=== PATIENT | male | born 1955 | race Caucasian/White ===

== ENCOUNTER 2022-04-30 10:54 | Outpatient (CLI) | payer MEDICARE, BC, SELFPAY ==
[2022-04-30 10:59] LABS: Chloride* 107 mmol/L (96-114); Sodium* 140 mmol/L (135-149)
[2022-04-30 11:01] LABS: Carbon Dioxide* 22 mmol/L (20-32); Cholesterol* 129 mg/dL (90-199); Creatinine* 0.9 mg/dL (0.5-1.5); Estimated Glomerular Filt Rate 92 ml/min
[2022-04-30 11:02] LABS: Alanine Aminotransferase* 39 U/L (4-50); Alkaline Phosphatase* 94 U/L (40-150); Aspartate Amino Transferase* 31 U/L (12-35); Bilirubin Total* 0.7 mg/dL (0.1-1.5); Blood Urea Nitrogen* 16 mg/dL (7-30); Calcium* 8.7 mg/dL (8.4-10.6); Glucose* 115 mg/dL (60-115); HDL Cholesterol* 47 mg/dL (>=40); LDL Cholesterol Calculated 62 mg/dL (<100); Total Protein* 6.7 g/dL (6.0-8.3); Triglycerides* 100 mg/dL (40-149)
[2022-04-30 11:34] LABS: PSA Screen* 0.29 ng/mL (0.10-4.00)
== END 2022-04-30 10:55 | disposition home or self-care (01) ==
PROVIDERS: PCP Family Medicine; Visit Provider Family Medicine
DX: Z00.00 Encounter for general adult medical examination without abnormal findings (principal); I25.10 Atherosclerotic heart disease of native coronary artery without angina pectoris; I10 Essential (primary) hypertension; N52.9 Male erectile dysfunction, unspecified; Z12.5 Encounter for screening for malignant neoplasm of prostate; Z95.5 Presence of coronary angioplasty implant and graft
CPT/HCPCS: 80053; 80061; 84153

== ENCOUNTER 2023-05-20 07:50 | Outpatient (CLI) | payer MEDICARE, BC, SELFPAY | END 2023-05-20 07:51 | disposition home or self-care (01) | LOC: NFLDREF 05-25 10:38 | PROVIDERS: PCP Family Medicine; Referring Provider Family Medicine; Visit Provider Family Medicine | DX: Z00.00 Encounter for general adult medical examination without abnormal findings (principal); Z12.5 Encounter for screening for malignant neoplasm of prostate; I25.10 Atherosclerotic heart disease of native coronary artery without angina pectoris; I10 Essential (primary) hypertension; R73.03 Prediabetes | CPT/HCPCS: 80053; 80061; 84153 ==

== ENCOUNTER 2024-05-28 08:38 | Outpatient (CLI) | payer MEDICARE, BC, SELFPAY ==
--- OUTSIDE RECORDS SUMMARY | 2024-06-01 00:42 | XMS_ITS | Clinical Summary ---
Author Organization [facility] Address [place], [place] [address] Care Team Providers Care Chips Screen Tender Name Role Phone Leandro Wilson MD Primary Care Provider [phone] Allergies No known active allergies Medications Medication Sig Dispensed Refills Start Date End Date Status aspirin (ECOTRIN) 81 mg enteric coated tablet Take 81 mg by mouth once daily with a meal. Active atorvastatin (LIPITOR) 80 mg tablet Take 80 mg by mouth at bedtime. Active clopidogrel (PLAVIX) 75 mg tablet Take 75 mg by mouth once daily. Active lisinopril (PRINIVIL; ZESTRIL) 2.5 mg tablet Take 2.5 mg by mouth once daily. Active nitroglycerin (NITROSTAT) 0.[address] 0.4 mg under the tongue every 5 minutes if needed for Chest Pain. Active ibuprofen (ADVIL; MOTRIN) 200 mg tablet Take 200 mg by mouth 4 times daily if needed. Active fluticasone (50 mcg per actuation) nasal solution (FLONASE)Indications:A llergic rhinitis, unspecified seasonality, unspecified trigger Inhale 2 Sprays into affected nostril(s) once daily. 16 g 11 08/29/2023 Active Social History Tobacco Use Types Packs/Day Years Used Date Smoking Tobacco: Some Days Cigarettes Smokeless Tobacco: Never Tobacco Cessation:Ready to Q uit: Not Asked; Counseling Given: Not Answered Comments:Rare cigarettes Alcohol Use Standard Drinks/Week Comments Yes 0 (1 standard drink = 0.6 oz pur e alcohol) occ.- Social Connections Answer Date Recorded Frequency of Communication with Friends and Fami ly Not on file 08/29/2023 Sex and Gender Information Value Date Recorded Sex Assigned at Not on file Gender Identity Not on file Sexual Orientation Not on file Obstetrics History Last Filed Vital Signs Vital Sign Reading Time Taken Comments Blood Pressure 144/89 08/29/2023 10:04 AM RATE CLERK Pulse 70 08/29/2023 10:04 AM RATE CLERK Temperature 36.4 ??C (97.5 ??F) 08/29/2023 1 0:04 AM RATE CLERK Respiratory Rate - - Oxygen Saturation 97% 08/29/2023 10: 04 AM RATE CLERK Inhaled Oxygen Concentration - - Weight 90.6 kg (199 lb 12.8 oz) 023 10:04 AM RATE CLERK Height 190 cm (6' 2.8) 08/29/2023 10:0 4 AM RATE CLERK Body Mass Index 25.1 08/29/2023 10:04 AM RATE CLERK Plan of Treatment Health Maintenance Due Date Last Done Comments Pneumococcal series for age 65+ (1 of 2 - PCV) 1959 Tdap 01/23/1964 Hepatitis C screening for ag e 18-79 1971 Tetanus booster 1973 Colonoscopy through age 75 1998 Lipids for age 45-75 1998 Zoster (shingles) series for age 50+ (1 of 2) 2003 Depression screening for age 12+ 03/04/2017 03/04/20 16 AAA screening age 65-74 2018 Medicare Wellness for age 65+ 2018 COVID-19 vaccine series ( season) 2023 08/02/2023, 08/10/2022, 02/19/2022, Additional history exists Influenza for age 65+ 06/03/2024 BMI (ht and wt on same day) for age 18+ 08/29/2024 08/29/2023 Care Teams Chips Screen Tender Relationship Specialty Start Date End Date Leandro Wilson MD [address] [place] [id number] PCP - General Family Practice 08/29/23
== END 2024-05-28 08:39 | disposition home or self-care (01) ==
PROVIDERS: PCP Family Medicine; Referring Provider Family Medicine; Visit Provider Family Medicine
DX: I10 Essential (primary) hypertension (principal); E78.5 Hyperlipidemia, unspecified; R73.03 Prediabetes; Z12.5 Encounter for screening for malignant neoplasm of prostate
CPT/HCPCS: 80053; 80061; G0103

== ENCOUNTER 2025-07-01 08:01 | Outpatient (CLI) | payer MEDICARE, BC, SELFPAY | END 2025-07-01 08:02 | disposition home or self-care (01) | LOC: NFLDREF 07-02 06:30 | PROVIDERS: PCP Family Medicine; Referring Provider Family Medicine; Visit Provider Family Medicine | DX: I25.10 Atherosclerotic heart disease of native coronary artery without angina pectoris (principal); Z12.5 Encounter for screening for malignant neoplasm of prostate | CPT/HCPCS: 80053; 80061; 84403; 84443; G0103 ==